=== PATIENT | female | born 1990 | race Caucasian/White ===

== ENCOUNTER 2019-08-03 12:47 | Emergency (ER) | payer MEDICAID ==
[~2019-08-03] VITALS: Ht 160 cm; Wt 64.9 kg
[2019-08-03 13:03] VITALS: Ht 160 cm; Wt 64.9 kg
[2019-08-03 13:36] LABS: BASOPHIL % 0.2 % (0-2); PLATELET COUNT 247 x10^3mcL (130-400)
[2019-08-03 13:37] LABS: RED CELL DISTRIBUTION WIDTH 14.6 % (11.5-14.5)
[2019-08-03 13:43] LABS: CALCIUM 9.1 mg/dL (8.5-10.1); CHLORIDE SERUM 103 mmol/L (98-107); GFR1 > 60 mL/min; GLUCOSE SERUM 99 mg/dL (74-106); POTASSIUM SERUM 4.5 mmol/L (3.5-5.1); SODIUM SERUM 138 mmol/L (136-145)
[2019-08-03 13:47] LABS: ALBUMIN 3.8 g/dL (3.4-5.0); ALKALINE PHOSPHATASE 112 U/L (46-116); ALT/SGPT 25 U/L (14-59); AST/SGOT 21 U/L (15-37); BILIRUBIN TOTAL 0.4 mg/dL (0.20-1.00); TOTAL PROTEIN, SERUM 8.2 g/dL (6.4-8.2)
[2019-08-03 18:11] VITALS: BP 125/73
== END 2019-08-03 18:11 | disposition home or self-care (01) ==
LOC: ED 12:47
DX: N23 Unspecified renal colic (principal)
CPT/HCPCS: J1885; J2405; J7030; Q0092